=== PATIENT | female | born 1985 | race Caucasian/White ===

== ENCOUNTER 2018-09-17 11:48 | Emergency (ER) | payer BC, OTHER ==
[2018-09-17 12:20] LABS: #Eosinphils 0.1 thou/uL (0.0-0.7); #Lymphocytes 2.2 thou/uL (1.20-3.40); #Monocytes 0.6 thou/uL (0.11-0.59); #Neutrophils 8.5 thou/uL (1.40-6.50); %Basophils 0.1 % (0.0-1.0); %Eosinophils 1.2 % (0.0-10.0); %Lymphocytes 19.4 % (21.0-51.0); %Neutrophils 74.3 % (42.0-75.0); Hemoglobin 12.9 g/dL (12.0-16.0); Mean Corpuscular HGB CONC 34.6 g/dL (32.0-36.0); Mean Corpuscular Volume 89.6 fL (78.0-98.0); Mean Platelet Volume 6.9 fL (7.4-10.4); Platelet Count 287 thou/uL (130-400); RBC Distribution Width 10.9 % (11.5-14.5); Red Blood Cell (RBC) Count 4.16 mill/uL (4.20-5.40); White Blood Cell (WBC) Count 11.4 thou/uL (4.8-10.8)
--- NOTE | 2018-09-17 12:59 | ULT ---
PELVIC ULTRASOUND WITH DOPPLER: HISTORY: Pelvic pain. FINDINGS: A single live intrauterine gestation is seen with measurements corresponding to an estimated gestatio nal age of 13 weeks 3 days and DINO at 03/22/2019. The crown-rump length measures 6.84 cm. hea rt rate measures 169 b.p.m. Placenta is posteriorly located without evidence of placenta previa. Am niotic fluid is adequate. No retroplacental hemorrhage is seen. The ovaries are not visualized. IMPRESSION: Single live intrauterine of 13 weeks 3 days estimated gestational age and estimated date of delivery at 03/22/2019. POS: [facility]
[2018-09-17 13:17] LABS: Bilirubin Negative (Negative); Blood, Urine Negative (Negative); Clarity CLEAR (Clear); Glucose, Urine (Dipstick) Negative (Negative); Leukocyte Negative (Negative); Nitrite Negative (Negative); Protein, Urine (Dipstick) Negative (Neg-Trace); Specific Gravity, Urine 1.004 (1.002-1.036); Urobilinogen 0.2 mg/dL (0.2-1.0); pH, Urine 6.5 (5.0-9.0)
== END 2018-09-17 14:10 | disposition home or self-care (01) ==
LOC: ERS 11:48
DX: O20.0 Threatened abortion (principal); Z3A.13 13 weeks gestation of pregnancy
CPT/HCPCS: 36415; 76856; 81003; 84702; 85025; 86900; 86901

== ENCOUNTER 2019-03-13 15:15 | Day surgery (SDC) | payer BC, OTHER ==
[2019-03-13 15:48] VITALS: BMI 35.3
[2019-03-13] MEDS ORDERED: Acetaminophen 500 MG TAB PO SCH (16:45)
[2019-03-13] MEDS ORDERED: hydrALAZINE 20 MG/ML VIAL SLOW IVP PRN (16:46)
--- NOTE | 2019-03-13 17:35 | PRG ---
DATE OF SERVICE: 03/13/2019 PRIMARY OB: Charlie Santos DO, MS CHIEF COMPLAINT: Elevated blood pressures. HISTORY OF PRESENT ILLNESS: The patient is a 33-year-old female, G2, P1, with an intrauterine at 38 weeks and 3 days, presenting from clinic with a reported elevated blood pressure with 140 systolic with a repeat blood pressure in the 125. The patient reports she has been having headaches the last few hours. It is mild and bilateral. She denies any history of preeclampsia or blood pressure issues with her previous or denies any illness with fever, cough; however, reports a headache the last few hours but she has not taken any medication for. Denies chest pain, shortness of breath, nausea, vomiting, diarrhea, constipation, hip problems, knee problems, muscle weakness. Denies vaginal bleeding, leakage of fluid. Denies uterine contractions. Denies urinary urgency or frequency. PAST MEDICAL HISTORY: Asthma. PAST SURGICAL HISTORY: Negative. ALLERGIES: NO KNOWN DRUG ALLERGIES. MEDICATIONS: vitamins. SOCIAL HISTORY: Denies drug, alcohol, tobacco use. OB LABS: The patient is GBS positive. Blood type is B negative. She is rubella immune. Hepatitis B surface antigen is negative. HIV is nonreactive. RPR is nonreactive. REVIEW OF SYSTEMS: Per HPI. PHYSICAL EXAMINATION: VITAL SIGNS: So far blood pressures taken here ranged 115-128 systolic and 72-85 diastolic with heart rate 100, respiratory rate 16, temperature 98.4. GENERAL: She appears to be in no acute distress. She is alert, oriented, cooperative, and pleasant to interact with. HEAD: Normocephalic, atraumatic. LUNGS: Clear to auscultation bilaterally. HEART: Regular rate and rhythm. ABDOMEN: Gravid and soft. EXTREMITIES: Nontender, nonedematous. heart tracing shows the fetus with a baseline in the 130s with moderate long-term variability, positive 15 x 15 accelerations, no decelerations. Tocometer shows some irritability, but not felt by the patient. ASSESSMENT AND PLAN: The patient is a 33-year-old female with an isolated elevated pressure in the clinic today and is here for further evaluation. PIH labs had been drawn in the clinic today. I do not see a reason to draw them here as the patient has continued to have normal range pressures up to this point. We have discussed monitoring her pressures for 1 hour to 2 hours. If they remain normal, she can be discharged home and follow up with the labs as an outpatient with her primary provider. If she does begin having elevated pressures while she is here, we will discuss with Dr. Santos a medically indicated induction of labor. Anticipate the patient to be discharged home. We will continue to watch for another hour and a half. Fetus has a category 1 tracing and reactive NST and the patient has been counseled to follow up with Dr. Santos in the next couple of days. Job ID: [id number]
[2019-03-14] MEDS ORDERED: FLU VACC QS2019-20(6MOS UP)/PF 60 MCG/0.5 ML SYRINGE IM ONE (09:00)
== END 2019-03-13 17:20 | disposition home or self-care (01) ==
LOC: L&D/OP 15:15
PROVIDERS: ATTEND Obstetrics & Gynecology
DX: O99.89 Other specified diseases and conditions complicating pregnancy, childbirth and the puerperium (principal); R03.0 Elevated blood-pressure reading, without diagnosis of hypertension; Z3A.38 38 weeks gestation of pregnancy
CPT/HCPCS: 99282

== ENCOUNTER 2019-03-19 17:44 | Inpatient (IN) | payer BC, OTHER ==
[2019-03-19 18:08] VITALS: BMI 35.5
[2019-03-19] MEDS ORDERED: Ondansetron PF 4 MG/2 ML Vial IVP PRN ×2 (18:14→23:20)
[2019-03-19] MEDS ORDERED: Zolpidem Tartrate 5 MG TAB PO PRN (18:14)
[2019-03-19] MEDS ORDERED: Butorphanol Tartrate 1 MG/ML VIAL SLOW IVP PRN (18:14)
[2019-03-19] MEDS ORDERED: Acetaminophen/Codeine 30-300mg Tablet PO PRN ×2 (18:14)
[2019-03-19] MEDS ORDERED: Lidocaine 1% (PF) 30 ML VIAL SC PRN (18:14)
[2019-03-19] MEDS ORDERED: NS / Oxytocin 40 units/1000ml 1,000 ML IV PRN (18:14)
[2019-03-19] MEDS ORDERED: Ibuprofen 800 MG TAB PO PRN (18:14)
[2019-03-19] MEDS ORDERED: hydrALAZINE 20 MG/ML VIAL SLOW IVP PRN (18:14)
[2019-03-19] MEDS ORDERED: Acetaminophen 500 MG TAB PO PRN (18:14)
[2019-03-19] MEDS ORDERED: Promethazine HCl 25 MG/ML VIAL IM PRN ×2 (18:14→23:20)
[2019-03-19] MEDS ORDERED: Lactated Ringer's 1,000 ML IV SCH (18:15)
[2019-03-19] MEDS ORDERED: NS w/ Oxytocin 10 units 500 ML IV SCH (18:15)
[2019-03-19] MEDS ORDERED: Penicillin G Potassium 5 MILL.UNITS in Sodium Chloride 0.9% 100 ML IVPB SCH (18:15)
--- NOTE | 2019-03-19 18:24 | PDOC.LDHP ---
Labor and Delivery H&P Chief complaint: contractions, loss of fluid HPI: 33 yo WF presents c/o UCs x 24 hrs with SROM cvlear at 1715 today. Denies bleeding or decreased FM. Current gestational age (weeks): 38 Due date: 03/24/19 Dating criteria: last menstrual period Grav: 2 Para: 1 OB History Details: PNC with Dr. Santos, followed for elevated BPs in 3rd trimester. Current complications: none Abnormal US findings: No Current medications: pre-bradley vitamins Previous surgical history: none Allergies/Adverse Reactions: Allergies Allergy/AdvReac Type Severity Reaction Status Date / Time No Known Allergies Allergy Verified 03/19/19 18:03 Social history: none - Physical Exam Vital signs reviewed and normal: yes General: breathing through contractions Heart: RRR Lungs: CTAB Abdomen: gravid Extremeties: trace edema FHT: category 1 [place] contractions every: UCs q 3-5 mins. - Vaginal Exam cm dilated: 6 Effacement: 90% Station: -1 - OB Labs Blood type: B RH: positive Antibody Screen: negative HIV: negative RPR: negative HEPSAg: negative GBS: positive Rubella: immune - Assessment L&D Assessment: term patient in labor - Plan Plan: admit to L&D, labor augmentation if indicated (Dr. Santos out of town, [facility] to manage.), GBS antibiotic prophylaxis, informed consent obtained
[2019-03-19] MEDS: Lactated Ringer's 1,000 ML IV SCH ×2 (18:35→23:21)
[2019-03-19 19:04] LABS: Hemoglobin 11.8 g/dL (12.0-16.0); Mean Corpuscular HGB CONC 34.4 g/dL (32.0-36.0); Mean Corpuscular Hemoglobin 31.1 pg (27.0-31.0); Mean Corpuscular Volume 90.3 fL (78.0-98.0); Mean Platelet Volume 8.4 fL (7.4-10.4); Platelet Count 188 thou/uL (130-400); RBC Distribution Width 12.8 % (11.5-14.5); Red Blood Cell (RBC) Count 3.78 mill/uL (4.20-5.40); White Blood Cell (WBC) Count 12.8 thou/uL (4.8-10.8)
[2019-03-19 19:11] LABS: HBSAg Index 0.17 S/CO (0-0.99); Hep B Surf Ag Non-Reactive S/CO (NonReactive)
[2019-03-19 19:15] LABS: Syphilis Antibody Nonreactive (Nonreactive); Syphilis Antibody Index 0.06 S/CO (<1.00 Non-Reactive)
[2019-03-19 20:23] LABS: ALT (SGPT) 9 U/L (8-55); AST (SGOT) 10 U/L (5-34); Albumin 3.1 g/dL (3.5-5.0); Alkaline Phosphatase 160 U/L (40-110); Anion Gap 12 mmol/L (10-20); BUN (Urea Nitrogen) 6 mg/dL (7.0-18.7); Bilirubin, Total 0.2 mg/dL (0.2-1.2); Calc. Creatinine Clearance 181 mL/min (70-130); Calcium 8.6 mg/dL (7.8-10.44); Carbon Dioxide 23 mmol/L (22-29); Chloride 107 mmol/L (98-107); Estimated GFR-MDRD Greater than 90; Globulin 2.8 g/dL (2.4-3.5); Glucose 83 mg/dL (70-105); Potassium 3.8 mmol/L (3.5-5.1); Protein, Total 5.9 g/dL (6.0-8.3); Sodium 138 mmol/L (136-145)
[2019-03-19] MEDS: Penicillin G 2.5 MILL.units 2.5 MILL.UNITS in Premix Bag 1 BAG IVPB SCH (22:22)
[2019-03-19] MEDS ORDERED: Fentanyl 4 mcg/Bup 0.1% Cadd 100 ML ONE (22:43)
[2019-03-19] MEDS ORDERED: Lactated Ringer's 500 ML IV PRN (23:20)
[2019-03-19] MEDS ORDERED: ePHEDrine/0.9% NaCl/PF SYRINGE 50 mg/10 ml SLOW IVP PRN (23:20)
[2019-03-19] MEDS ORDERED: diphenhydrAMINE 50 MG/ML VIAL IVP PRN (23:20)
[2019-03-19] MEDS ORDERED: Naloxone HCl 0.4 mg/ml Vial IVP PRN ×2 (23:20)
[2019-03-19] MEDS ORDERED: Communication Order-Pharmacy FS SCH (23:30)
[2019-03-19] MEDS ORDERED: Fentanyl 4 mcg/Bupivacaine 0.1% Cassette 100 ML EPIDURAL SCH (23:30)
--- NOTE | 2019-03-20 02:00 | PDOC.EVN ---
Event Note - Event Note Event Note: Comfortable with epidural. SVE= C/C/+1. Fhts stable. Ucs q 2-3 mins. Plan: Start to push.
[2019-03-20] MEDS: Penicillin G 2.5 MILL.units 2.5 MILL.UNITS in Premix Bag 1 BAG IVPB SCH ×2 (02:22→06:32)
--- NOTE | 2019-03-20 03:33 | PDOC.OPDEL ---
OB Operative/Delivery Note Delivery Dr/Surgeon: Chaka Pre-Delivery Diagnosis: active labor Procedure/Post Delivery Dx: spontaneous vaginal delivery Anesthesia: epidural - Additional Findings/Plan Placenta delivered: spontaneous Repaired Obstetrical Laceration: 2nd degree Estimated blood loss: 350 cc, QBL pending Compilations/Other Findings: Viable male OA with terminal meconium. Apgars 8/9 Placenta intact Nelson. 2* MLE closed in layers with 2-0 chromic. Small periurethral lac repaired with 3-0 chromic. Linda replaced. Post delivery plan: routine recovery
[2019-03-20] MEDS ORDERED: NS / Oxytocin 40 units/1000ml 1,000 ML ONE (04:49)
[2019-03-20] MEDS: Ibuprofen 800 MG TAB PO PRN ×2 (15:16→21:37)
[2019-03-21 01:15] VITALS: TEMP 98.2
[2019-03-21] MEDS: Acetaminophen 325 MG TAB PO PRN ×2 (03:18→08:45)
[2019-03-21 04:59] LABS: Hemoglobin 10.7 g/dL (12.0-16.0); Platelet Count 169 thou/uL (130-400)
[2019-03-21] MEDS: Ibuprofen 800 MG TAB PO PRN (05:51)
--- NOTE | 2019-03-21 06:03 | PDOC.PP ---
Post Progress Note Post Day #: 1 Subjective: Doing well PO intake tolerated: yes Flatus: yes Ambulation: yes Vital Signs (12 hours) Temp Pulse Resp BP BP Pulse Ox 03/21/19 00:21 98.2 F 94 18 125/70 03/20/19 19:50 97.7 F 92 18 120/76 99 Weight Weight 220 lb Vitals reviewed for last 24 hours - Physical Examination General: NAD Abdominal: lochia, no distention, appropriately TTP Extremities: negative homans (B) Neurological: no gross focal deficits Psychiatric: A&Ox3, normal affect Result Diagrams: 03/21/19 04:13 03/19/19 18:19 Additional Labs: Post Labs Blood Type B POSITIVE 03/19/19 18:20 Hep Bs Antigen Non-Reactive S/CO (NonReactive) 03/19/19 18:19 (1) Vaginal delivery Code(s): O80 - ENCOUNTER FOR FULL-TERM UNCOMPLICATED DELIVERY Status: Acute - Assessment/Plan PPD 1 greater than 24 hours. Patient desires to go home today. We will plan for 1100 DC to home. F/U in 2-4 weeks routine
[2019-03-21 08:05] VITALS: BP 114/73
[2019-03-21] MEDS ORDERED: Prenatal Vitamin 1 TAB PO SCH (09:00)
== END 2019-03-21 11:55 | disposition home or self-care (01) | DRG 807 ==
LOC: L&D/OP 17:44 → L&D 18:05 → 3SW 03-20 06:41
PROVIDERS: ADMIT Obstetrics & Gynecology; ATTEND Obstetrics & Gynecology
PROC: 10E0XZZ Delivery of Products of Conception, External Approach (ICD-10-PCS; principal; 2019-03-20)
PROC: 0KQM0ZZ Repair Perineum Muscle, Open Approach (ICD-10-PCS; 2019-03-20)
PROC: 0W8NXZZ Division of Female Perineum, External Approach (ICD-10-PCS; 2019-03-20)
DX: O77.0 Labor and delivery complicated by meconium in amniotic fluid (principal); Z37.0 Single live birth; Z3A.38 38 weeks gestation of pregnancy; O70.1 Second degree perineal laceration during delivery
CPT/HCPCS: 36415; 51702; 80053; 85014; 85018; 85027; 85049; 86780; 86850; 86900; 86901; 87340; 99285; J2001; J2405; J2540; J2590